=== PATIENT | female | born 1990 | race Caucasian/White ===

== ENCOUNTER 2020-05-26 09:48 | Emergency (ER) | payer OTHER, SELFPAY ==
[2020-05-26 09:54] VITALS: BP 97/55; PULSE 89; RESP 18; TEMP 36.4; O2SAT 100
--- NOTE | 2020-05-26 10:09 | ED.GENADULT ---
HPI - General Adult General Chief complaint: Unspecified Stated complaint: feels like airbubble in chest Time Seen by Provider: 05/26/20 10:12 Source: patient and RN notes reviewed Mode of arrival: ambulatory Limitations: no limitations History of Present Illness HPI narrative: 29-year-old female who is 18 weeks presents with concern for a feeling of a bubble in her throat when she swallows. Reports several day history of this. Reports she feels the need to chew her food very thoroughly and then wash it down with liquid. She denies any heartburn, nausea, vomiting, diarrhea, constipation. She denies shortness of breath, difficulty breathing, coughing, fever, abdominal pain, sore throat, upper respiratory symptoms. Reports she took antacids with no relief. MD complaint: Dysphagia Related Data Home Medications Medication Instructions Recorded Confirmed PNV cmb#95-ferrous fumarate-FA 1 tablet PO DAILY 05/26/20 05/26/20 [] levothyroxine 88 mcg PO DAILY 05/26/20 05/26/20 Allergies Allergy/AdvReac Type Severity Reaction Status Date / Time No Known Allergies Allergy Verified 05/26/20 10:19 Review of Systems Review of Systems: Narrative: CONSTITUTIONAL: Denies malaise, chills, sweats, or fever. EYES: Denies visual changes, redness, or discharge. ENT: Denies rhinorrhea, congestion, sinus pain, otalgia or sore throat. CARDIOVASCULAR: Denies chest pain, palpitations, or edema. RESPIRATORY: Denies cough or dyspnea. GASTROINTESTINAL: Denies abdominal pain, nausea, vomiting, diarrhea. Reports dysphagia MUSCULOSKELETAL: Denies back pain, joint pain, or myalgia. NEUROLOGIC: Denies numbness, weakness, or headache. All systems reviewed & are unremarkable except as noted in HPI and below PMFSH Past Medical History Medical History (Updated 05/26/20 @ 10:29 by Salina Swenson NP) Endometriosis History of hysteroscopy Missed 08/29/11 Transfusion history Blood transfusion Vaginal delivery 09/03/09, , full term, male, 8#7 Surgical History Surgical History Previous section 01/04/13, c/s, full term, female, 7#14 07/31/15, c/s, full term, male, 9# Family History Family History Mother Cerebrovascular accident Father Diabetes mellitus Grandparent Diabetes mellitus Social History Social History Smoking status: Never smoker Alcohol intake: never Substance use: never Comments At time of signature, agree with nursing past medical, surgical, social and family history. There is no relevant family history pertinent to the presenting complaint Exam Narrative: Exam Narrative: GENERAL: Well-appearing, well-nourished, and in no acute distress. HEAD: Normocephalic, atraumatic. EYES: PERRLA, conjunctivae clear ENT: Mucous membranes moist. TM pearly ledesma with sharp light reflex bilaterally; no tragal tenderness. Oropharynx without erythema or lesions. Tonsils not enlarged and without exudate. NECK: Supple. No lymphadenopathy. No jugular venous distension, thyromegaly, or carotid bruits. Carotids were easily palpable bilaterally. CHEST: No respiratory distress. Clear to auscultation. No bony deformities, no asymmetry. Speaks in full sentences. HEART: Regular rate and rhythm. No murmur heard. ABDOMEN: Soft, nontender, nondistended, normal active bowel sounds, no palpable masses. heart tones strong SKIN: Warm, dry, no rash. NEURO: Alert and oriented x3. No focal deficits. PSYCH: Normal mood and affect Course Course Emergency Course: Discussed with patient limited diagnostic capability at the [facility]. Advised patient to call her primary care provider for further evaluation or go to the emergency room if her symptoms become severe. Patient is aware of diagnosis, understands and agrees to t
== END 2020-05-26 10:30 | disposition home or self-care (01) ==
PROVIDERS: Emergency Provider Nurse Practitioner; PCP Obstetrics & Gynecology
DX: R13.10 Dysphagia, unspecified (principal); O90.89 Other complications of the puerperium, not elsewhere classified; Z3A.18 18 weeks gestation of pregnancy
CPT/HCPCS: 99212; G0463

== ENCOUNTER 2020-06-05 09:41 | Outpatient (CLI) | payer OTHER, SELFPAY ==
--- NOTE | ~2020-06-05 | US_ITS ---
US OB /maternal detail DATE: 06/05/2020 11:31 INDICATION: anatomy screen TECHNIQUE: Real-time and Doppler analysis COMPARISON: None FINDINGS: The placenta is anterior, the lower margin 1.7 cm above the internal os. There is a subject ively normal amount of amniotic fluid. The fetus is in vertex presentation, longitudinal lie. heart rate of 141 bpm. The cerebral ventricles appear normal. The cerebellum and cisterna magna and nuchal fold appear within normal limits. spine is not optimally demonstrated due to position. Four-chamber heart. Normal appearing left and right ventricular outflow tracts. The diaph ragm is intact. Fluid is demonstrated in the stomach and urinary bladder. The kidneys aristeo ear normal, without hydronephrosis. Three-vessel umbilical cord with normal appearing insertion at abdominal wall. female external genitalia. Biparietal diameter 4.25 cm; 18 weeks 6 days estimated gestational age Head circumference 16.0 cm; 18 weeks 6 days Abdominal circumference 14.48 cm; 19 weeks 6 days Femur length 3.09 cm; 19 weeks 4 days Composite age by [facility] parameters 19 weeks 2 days +/- 1 week 2 days. RENETTA by ultrasound is 10/28/2020 . Estimated weight is 301 +/- 40 5 g. Head circumference/valve thrombus 1.10, within normal range of 1.09-1.26 Femur length/head circumference 19.33, slightly above normal range of 16.30-80.73. IMPRESSION: Estimated gestational age is 19 weeks 2 days +/- 1 week 2 days; RENETTA is 10/28/2020, compared to 10/26/2020 by LMP anatomy screen is unremarkable except the spine was not optimally demonstrated due to fet al position on the current examination Reviewed, dictated and finalized at [facility]. Reviewed, dictated and finalized at [facility]. WORKER IMPRESSION: Estimated gestational age is 19 weeks 2 days +/- 1 week 2 days; RENETTA is 10/28/2020, compared to 10/26/2020 by LMP anatomy screen is unremarkable except the spine was not optimally d emonstrated due to position on the current examination
[2020-06-05 12:19] LABS: Hematocrit 32.2 % (37.0-47.0); Hemoglobin 11.2 g/dL (12.0-15.0); Mean Corpuscular HGB Conc 34.8 g/dl (32-36); Mean Corpuscular Hemoglobin 31.7 pg (26-34); Mean Corpuscular Volume 91.2 fl (80-100); Mean Platelet Volume 10.1 fl (7.4-10.4); Platelet Count Result 192 k/mm3 (150-375); Red Blood Count 3.53 M/mm3 (4.2-5.4); Red Cell Distribution Width 12.9 % (11.5-14.5); White Blood Count 7.9 K/mm3 (4.5-10.0)
[2020-06-05 12:30] LABS: Glucose 1 Hour PP 50gm Dose 112 mg/dL
== END 2020-06-05 09:42 | disposition home or self-care (01) ==
PROVIDERS: Visit Provider Obstetrics & Gynecology
DX: O26.892 Other specified pregnancy related conditions, second trimester (principal); Z3A.18 18 weeks gestation of pregnancy; Z67.91 Unspecified blood type, Rh negative
CPT/HCPCS: 36415; 76805; 82947; 85027; 85461; 86880; 86902

== ENCOUNTER 2020-07-31 10:21 | Outpatient (CLI) | payer OTHER, SELFPAY ==
--- NOTE | ~2020-07-31 | US_ITS ---
EXAMINATION: US OB follow up DATE: 07/31/2020 11:05 INDICATION: Evaluate placental position TECHNIQUE: Real-time transabdominal obstetric ultrasound. FINDINGS: Comparison ultrasound dated 06/05/2020 There is a single living fetus in vertex presentation. The placenta is anterior without placenta pre via. Placenta is low lying measuring 2.4 cm to the cervix. cardiac activity and movement is noted with a heart rate of 144 beats per minute. T he amniotic fluid volume is subjectively normal. Limited survey demonstrates normal spine.. The following biometric data were obtained: BPD: 65mm corresponds to gestational age 26 weeks 1 days. Head circumference: 256mm corresponds to gestational age 27 weeks 6 days. Abdominal circumference: 236mm corresponds to gestational age 27 weeks 6 days. Femur length: 50mm corresponds to gestational age 27 weeks 0 days. Estimated weight: 1084grams +/- 162grams.] IMPRESSION: 1. Single living intrauterine in vertex presentation with an estimated gestational age of 27 weeks 2 days by inititial ultrasound. Appropriate interval growth. 2. Low-lying anterior placenta measuring 2.4 cm to the cervix. 3: Normal limited survey of the spine. Reviewed, dictated and finalized at location [facility]. ERY ENGINEER IMPRESSION: 1. Single living intrauterine in vertex presentation with an estimat ed gestational age of 27 weeks 2 days by inititial ultrasound. Appropriate int erval growth. 2. Low-lying anterior placenta measuring 2.4 cm to the cervix. 3: Normal limited survey of the spine.
[2020-07-31 11:53] LABS: Hematocrit 31.3 % (37.0-47.0); Hemoglobin 10.9 g/dL (12.0-15.0); Mean Corpuscular HGB Conc 34.8 g/dl (32-36); Mean Corpuscular Hemoglobin 32.1 pg (26-34); Mean Corpuscular Volume 92.1 fl (80-100); Mean Platelet Volume 10.1 fl (7.4-10.4); Platelet Count Result 182 k/mm3 (150-375); Red Cell Distribution Width 12.6 % (11.5-14.5); White Blood Count 8.1 K/mm3 (4.5-10.0)
[2020-07-31 12:41] LABS: Glucose 1 Hour PP 50gm Dose 85 mg/dL
== END 2020-07-31 10:22 | disposition home or self-care (01) ==
PROVIDERS: Visit Provider Obstetrics & Gynecology
DX: O44.42 Low lying placenta NOS or without hemorrhage, second trimester (principal); Z3A.27 27 weeks gestation of pregnancy
CPT/HCPCS: 36415; 76816; 82947; 85027; 86850; 86870; 86880; 86886; 86900; 86901; 86902; 86905; 86971

== ENCOUNTER 2020-08-07 12:55 | Outpatient (CLI) | payer OTHER, SELFPAY ==
--- NOTE | 2020-08-09 07:40 | PC.NURSE ---
08/08/2020 1730- Rhogam dose given in left hip. Lot number [id number], Exp date 10/02/2021.
== END 2020-08-07 12:56 | disposition home or self-care (01) ==
PROVIDERS: Visit Provider Obstetrics & Gynecology
DX: O26.899 Other specified pregnancy related conditions, unspecified trimester (principal); Z67.91 Unspecified blood type, Rh negative; Z3A.00 Weeks of gestation of pregnancy not specified
CPT/HCPCS: 36415; 85461; 86880; 90384; J2790

== ENCOUNTER 2020-10-19 07:03 | Inpatient (IN) | payer OTHER, SELFPAY ==
--- NOTE | 2020-10-02 14:50 | PC.NURSE ---
VERIFIED WITH OR SCHEDULE AND PATIENT--C/S ON 10/23/20 AT 1200 PATIENT INSTRUCTED TO HAVE LABS DRAWN THE FRIDAY BEFORE SURGERY AND SHE WILL TO GET REQUISITION FROM DR BOBO SINCE PRE-ADMIT APPOINTMENT WAS BY PHONE PATIENT INSTRUCTED NOTHING TO EAT OR DRINK AFTER MIDNIGHT THE NIGHT BEFORE SURGERY AND TO BE IN OB THE DAY OF SURGERY AT 10 AM. PATIENT VERBALIZED HER UNDERSTANDING
--- NOTE | 2020-10-18 14:08 | PM.IMHP ---
H&P: HPI History of Present Illness Date/Time: 10/18/20 14:08 at 39+0 with h/o prior c sections coming in for elective repeat C/S. No complaints. No problems this other than + anti-K antibody but titer has remained very low throughout Chief Complaint: Full term , prior c section Review of Systems Review of Systems: All systems reviewed & are unremarkable except as noted in HPI and below PMFSH Past Medical History Medical History Endometriosis History of hysteroscopy Missed 08/29/11 Transfusion history Blood transfusion, received anti-K antibody Vaginal delivery 09/03/09, , full term, male, 8#7 Surgical History Surgical History Previous section 01/04/13, c/s, full term, female, 7#14 07/31/15, c/s, full term, male, 9# Family History Family History Mother Acute myocardial infarction Hearing difficulty of left ear Diabetes mellitus Father No problems noted. Grandparent Diabetes mellitus Social History Social History Smoking status: Never smoker Alcohol intake: never Substance use: never Spiritual care concerns: No Meds Home Medications and Allergies Home Medications Medication Instructions Recorded Confirmed Type PNV cmb#95-ferrous fumarate-FA 1 tablet PO DAILY 05/26/20 05/26/20 History [] levothyroxine 88 mcg PO DAILY 05/26/20 05/26/20 History Allergies Allergy/AdvReac Type Severity Reaction Status Date / Time No Known Allergies Allergy Verified 10/10/20 10:52 Exam Const: General: healthy appearing, no acute distress, alert, awake and Physically active Resp: Auscultation: clear to auscultation bilaterally Cardio: Rate: regular rate Rhythm: regular rhythm GI: Inspection: non-distended GI Palp: Yes Soft to palpation and No Tenderness to palpation present (GI) Extrem: General: no pedal edema and no calf tenderness Psych: Mental Status: mental status grossly normal Assessment and Plan Assessment and plan (1) Previous section: Code(s): Z98.891 - History of uterine scar from previous surgery Status: Acute Assessment and Plan: Proceed with repeat C section due to h/o prior C section, full term . She signed consent after risks, benefits, complications, and alternatives discussed. She expressed understanding and wishes to proceed
[2020-10-19] VITALS (47 sets, daily range): BP systolic 59–120; BP diastolic 49–89; PULSE 54–99; RESP 15–20; TEMP 36.1–36.8; O2SAT 96–100; BMI 27.1
--- OUTSIDE RECORDS SUMMARY | 2020-10-19 07:07 | XMS_ITS ---
:1990 Author Care Team Providers Name Role Phone Martin Dudley Primary Care Provider Unavailable Allergies Code Code System Name Reaction Severity Status Onset NKDA ? Notes: NO KNOWN ALLERGIES (Activ e) Comment: Location: [facility]; Medications Name Status Start Date Stop Date ? ? amoxicillin 875 mg-potassium Completed ? 11/2019 clavulanate 125 mg tablet azithromycin 250 mg tablet Completed ? 11/29 ciprofloxacin 250 mg tablet Completed ? 11/2019 Diflucan 150 mg tablet Active 03/30/2019 Not avail able take 1 tablet by oral route once fluticasone propionate 50 Completed ? 2019 mcg/actuation nasal spray,suspension hydrocodone 5 mg-acetaminophen Completed ? 0 11/30/2019 325 mg tablet levothyroxine Completed ? 11/30/2019 levothyroxine 25 mcg tablet Active ? Not available take 1 tablet by oral route every day levothyroxine 88 mcg tablet Active ? Not available metronidazole 500 mg tablet Completed ? 11/2019 nitrofurantoin Completed ? 11/30/2019 monohydrate/macrocrystals 100 mg capsule phenazopyridine 200 mg tablet Completed ? Active ? Not available ProAir HFA 90 mcg/actuation Completed ? 11/2019 aerosol inhaler sertraline 25 mg tablet Completed ? 11/30/19 20 Xulane 150 mcg-35 mcg/24 hr transdermal patch Active 0
--- NOTE | 2020-10-19 07:17 | LDADM ---
This patient, Edie Cifuentes, was admitted to Labor/Delivery/Recovery 119 on 10/19/20 at 07:03. Plans for labor, pain management and were discussed with patient. Patient/family oriented to hospital policies and general routines including ID bracelet, bed and alarms, visiting hours, pain management, procedures, bathroom and other care routines, personal items, smoking policy, room service/diet and guest tray routines, infant security routines, and visiting hours. Patient/Family are encouraged to report perceived risks to care and to ask questions if they do not understand what they are told or what they should do. See OBIX for further documentation.
[2020-10-19 07:41] LABS: Basophils Percent Auto 0.4 % (0.2-1.2); Eosinophils Absolute Auto 0.5 K/mm3 (0-0.3); Eosinophils Percent Auto 5.9 % (0-4.4); Hematocrit 33.3 % (37.0-47.0); Hemoglobin 11.5 g/dL (12.0-15.0); Immature Granulocyte Absolute 0.03 K/mm3 (0.00-0.031); Immature Granulocyte Percent A 0.3 % (0-0.5); Lymphocytes Absolute Auto 1.87 K/mm3 (0.9-3.2); Lymphocytes Percent Auto 20.3 % (18.3-44.2); Mean Corpuscular HGB Conc 34.5 g/dl (32-36); Mean Corpuscular Hemoglobin 31.4 pg (26-34); Mean Platelet Volume 10.6 fl (7.4-10.4); Monocytes Absolute Auto 0.5 K/mm3 (0.1-0.6); Monocytes Percent Auto 5.5 % (2.6-8.5); Neutrophils Absolute Auto 6.2 K/mm3 (1.3-6.7); Neutrophils Percent Auto 67.6 % (45.5-73.1); Platelet Count Result 212 k/mm3 (150-375); Red Blood Count 3.66 M/mm3 (4.2-5.4); Red Cell Distribution Width 13.1 % (11.5-14.5); White Blood Count 9.2 K/mm3 (4.5-10.0)
[2020-10-19] MEDS: LACTATED RINGERS 1,000 ML 125 ML IV CONT (07:44)
--- NOTE | 2020-10-19 08:31 | WPDANESEPPF ---
Anes - Initial Pre Proc Eval Procedure: Operation Date: 10/19/20 09:00 Proposed Procedures p Repeat Section - Naya Mota MD Date/Time: 10/19/20 08:31 Surgeon: Naya Mota MD Pre Op Diagnosis: Repeat section Patient Data Age: 29 Gender: F Height: 5 ft 1 in Weight: 65 kg Last Vital Signs Pulse 99 10/19/20 07:31 BP 92/54 L 10/19/20 07:31 Allergies Allergy/AdvReac Type Severity Reaction Status Date / Time No Known Allergies Allergy Verified 10/10/20 10:52 Home Medications Medication Instructions Recorded Confirmed Type PNV cmb#95-ferrous fumarate-FA 1 tablet PO DAILY 05/26/20 10/19/20 History [] levothyroxine 88 mcg PO DAILY 05/26/20 10/19/20 History Laboratory Tests 10/19/20 10/19/20 07:13 07:13 WBC 9.2 K/mm3 K/mm3 (4.5-10.0) RBC 3.66 M/mm3 L M/mm3 (4.2-5.4) Hgb 11.5 g/dL L g/dL (12.0-15.0) Hct 33.3 % L % (37.0-47.0) MCV 91.0 fl fl (80-100) MCH 31.4 pg pg (26-34) MCHC 34.5 g/dl g/dl (32-36) RDW 13.1 % % (11.5-14.5) Plt Count 212 k/mm3 k/mm3 (150-375) MPV 10.6 fl H fl (7.4-10.4) Immature Gran % (Auto) 0.3 % % (0-0.5) Neut % (Auto) 67.6 % % (45.5-73.1) Lymph % (Auto) 20.3 % % (18.3-44.2) [place] % (Auto) 5.5 % % (2.6-8.5) Eos % (Auto) 5.9 % H % (0-4.4) Baso % (Auto) 0.4 % % (0.2-1.2) Lymph # (Auto) 1.87 K/mm3 K/mm3 (0.9-3.2) [place] # (Auto) 0.5 K/mm3 K/mm3 (0.1-0.6) Eos # (Auto) 0.5 K/mm3 H K/mm3 (0-0.3) Baso # (Auto) 0.0 K/mm3 K/mm3 (0.0-0.1) Abs Immat Gran (auto) 0.03 K/mm3 K/mm3 (0.00-0.031) Absolute Neuts (auto) 6.2 K/mm3 K/mm3 (1.3-6.7) Absolute Nucleated RBC 0.0 K/mm3 K/mm3 (0.0-0.012) Nucleated RBC % 0.0 % % (0.0-0.2) RPR Pending Patient hx anesthesia problems: none Family hx anesthesia problems: none [facility] Past Medical History Medical History Endometriosis History of hysteroscopy Missed 08/29/11 Transfusion history Blood transfusion, received anti-K antibody Vaginal delivery 09/03/09, , full term, male, 8#7 Surgical History Surgical History Previous section 01/04/13, c/s, full term, female, 7#14 07/31/15, c/s, full term, male, 9# Family History Family History Mother Acute myocardial infarction Hearing difficulty of left ear Diabetes mellitus Father No problems noted. Grandparent Diabetes mellitus Social History Social History Smoking status: Never smoker Alcohol intake: never Substance use: never Spiritual care concerns: No Anes - Eval Final PreProcedure Day of Procedure 10/19/20 08:31 Patient weight: normal Heart: regular rate and rhythm Lungs: clear to auscultation Airway: Mallampati scale class II Neurological: alert and oriented Last oral intake: >/= 8 hours ASA classification: II Emergent: no Anesthetic plan: proceed Anesthesia type and monitoring: regional spinal and standard monitoring Informed Consent: The patient's anesthetic plan and its attendant risks and benefits were discussed with the patient/family/POA. Questions were solicited and answers provided to the satisfaction of the patient/family/POA.
--- NOTE | 2020-10-19 09:00 | WPDHPUPDATE1 ---
History and Physical Update Update Date/Time: 10/19/20 09:00 History and Physical has been reviewed, including an updated exam of the patient. There are NO changes in the patient's condition. Risks, benefits, and alternatives have been discussed and questions answered. Patient agrees to proceed with procedure.
--- NOTE | 2020-10-19 09:04 | PM.PROC ---
Procedure Note - Detailed Date of procedure: 10/19/20 Pre-op diagnosis: Repeat section Post-op diagnosis: same Procedure performed: Repeat LTCS Description of procedure: She was taken to the operating room where spinal anesthesia was obtained and found to be adequate. She was prepared and draped in the normal sterile fashion in the dorsal supine position with a leftward tilt. A Pfannenstiel skin incision was made over her prior incision using the scalpel and extended to the underlying layer of fascia. The fascia was incised in the midline with a scalpel then extended laterally with the Minor scissors. The rectus muscles were dissected off bluntly and sharply and in the midline. The peritoneum was entered sharply and extended inferiorly and superiorly with good visualization of the bladder. The bladder blade was inserted. The vesicouterine peritoneum was tented up and entered sharply with the Metzenbaum scissors. The bladder flap was created sharply. The bladder blade was reinserted. The lower uterine segment was incised in a transverse fashion with the scalpel. The incision was digitally stretched in a cephalocaudal direction. The membranes were ruptured with clear fluid noted. The 's head was delivered atraumatically. The shoulders and body were delivered easily. The cord was clamped x2 and cut. The was passed to the waiting nurse. Cord gas and cord blood was obtained. The placenta was manually extracted. The uterus was exteriorized and cleared of all clots and debris. The uterine incision was closed using 0 Vicryl in a running locked fashion. A couple free [id number] 0 Vicryl sutures were placed for bleeding points along the uterine incision. Once the uterine incision was found to be hemostatic, the uterus was returned to the abdomen. The gutters were cleared of all clots and debris. The uterine incision was reinspected and found to be hemostatic. The rectus muscles were inspected. Any bleeding points were cauterized. The rectus muscles were reapproximated using an 0 Vicryl [id number] suture. The fascia was then closed using 0 Vicryl in a running fashion. The subcutaneous tissue was irrigated. Any bleeding points were cauterized. The skin was closed using in sore but absorbable luis armando. She tolerated the procedure well. Sponge, lap, needle, and instrument counts were correct x2. She was taken to the recovery area in stable condition. Anesthesia: spinal Surgeon: Naya Mota MD Estimated blood loss (mL): 295 Drains: Yes (Lira) Packing: No Pathology: none sent Complications: No immediate complications Condition: stable Disposition: floor Findings: Female , cephalic; weight 7#5oz; Apgars 9/9; normal uterus, tubes, and ovaries
[2020-10-19] MEDS: ceFAZolin 2 GM/D5W 50 ML 2 GM/50 ML BAG IVPB (09:10)
[2020-10-19] MEDS: OXYTOCIN 30 UNITS/NS 500 ML 30 UNITS/500 ML BAG 125 UNITS IV CONT (10:44)
--- NOTE | 2020-10-19 12:22 | OBPPTRN ---
Patient transferred to post room # 291 via bed. Oriented to unit, room, information board, rooming in, admission packet and security measures. Patient verbalizes understanding.
--- NOTE | 2020-10-19 13:30 | PC.NURSE ---
Mother called out for assist with feeding. Consulted with patient, mother reports fed well first feeding. Mother states she breastfed other children for several months each. Reviewed infant feeding cues, frequencies, duration of feedings, feeding elimination flow sheet, and signs of adequate intake. Demonstrated stimulation techniques to wake infant for feeding. Assisted with to breast. Reviewed positioning/alignment in cross cradle, holding breast in U hold and guided asymmetrical latch on. was able to latch within a few attempts. nursed eagerly, with steady draws and frequent swallowing noted. Latch was shallow. Reviewed signs of a correct latch, effective nursing and suck swallow ratio. was able to maintain latch. Mother reported tenderness at times, had slipped to shallow latch. Demonstrated how to adjust latch more deeply while feeding. Mother quickly reports she can feel is latched more deeply and has minimal tenderness. Suggested to stimulate while feeding to keep awake and nursing effectively for increased stimulation and increased intake. Instructed mother to call out for RN assistance if she is unable to latch for feeding or she has discomfort with nursing
[2020-10-19] MEDS: DEXTROSE 5%/0.45% SOD CHL 1,000 ML 125 ML IV CONT (14:49)
[2020-10-19] MEDS: DOCUSATE SODIUM LIQ 100 MG/10 ML UDC PO (21:30)
[2020-10-20 04:30] VITALS: BP 118/71; PULSE 72; RESP 16; TEMP 37.1
[2020-10-20 04:44] LABS: Basophils Percent Auto 0.3 % (0.2-1.2); Eosinophils Absolute Auto 0.2 K/mm3 (0-0.3); Eosinophils Percent Auto 1.8 % (0-4.4); Hematocrit 29.9 % (37.0-47.0); Hemoglobin 10.1 g/dL (12.0-15.0); Immature Granulocyte Absolute 0.07 K/mm3 (0.00-0.031); Immature Granulocyte Percent A 0.6 % (0-0.5); Lymphocytes Absolute Auto 1.14 K/mm3 (0.9-3.2); Lymphocytes Percent Auto 10.1 % (18.3-44.2); Mean Corpuscular HGB Conc 33.8 g/dl (32-36); Mean Corpuscular Hemoglobin 31.4 pg (26-34); Mean Corpuscular Volume 92.9 fl (80-100); Monocytes Absolute Auto 0.7 K/mm3 (0.1-0.6); Monocytes Percent Auto 6.2 % (2.6-8.5); Neutrophils Absolute Auto 9.2 K/mm3 (1.3-6.7); Platelet Count Result 159 k/mm3 (150-375); Red Blood Count 3.22 M/mm3 (4.2-5.4); White Blood Count 11.3 K/mm3 (4.5-10.0)
--- NOTE | 2020-10-20 07:20 | PC.NURSE ---
Mother called out for assist with feeding. Consulted with patient, mother reports has been sleepy and on and off at breast during the night. fed well since . Assisted with to breast. Reviewed positioning/alignment in cross cradle, holding breast in U hold and guided asymmetrical latch on. Infant was able to latch within a few attempts. Infant nursed sleepily and was on and off, waking and making eager attempts to latch not maintaining latch. Used small drops of formula to entice infant to feed. latched nursing with bursts of eager sucking with long pausing. Infant did maintain latch for 10 minutes with constant stimulation needed. Reviewed signs of a correct latch, effective nursing and suck swallow ratio. was able to maintain latch. Suggested to stimulate while feeding to keep infant awake and nursing effectively for increased stimulation and increased intake. Instructed mother to call out for RN assistance if she is unable to latch infant for feeding or she has discomfort with nursing.
--- NOTE | 2020-10-20 07:43 | WPDANLDPN2 ---
Anes-Prog Note L&D Date/Time: 10/20/20 07:43 Comfortable throughout: section Neuraxial method: spinal Epidural/Spinal procedure site: clean & non-tender Neuro status: Neuro function grossly intact. Cardiovascular status: normal Respiratory status: normal Airway patency: baseline Mental status: baseline Post-Op hydration status: normal Vital Signs: Last Vital Signs Temp 37.1 C 10/20/20 04:30 Pulse 72 10/20/20 04:30 Resp 16 10/20/20 04:30 BP 118/71 10/20/20 04:30 Pulse Ox 100 10/19/20 12:30 Pain score (VAS): 0 I/O: Intake & Output 10/19/20 10/19/20 10/20/20 15:59 23:59 07:59 Intake Total 8307 654 6226 Output Total 832 1300 3650 Balance [phone] Post-procedural complaints: none Patient feedback: Patient satisfied with anesthetic care.
--- NOTE | 2020-10-20 07:43 | WPDANLDNPN2 ---
Anes-Prog Note L&D-Neuraxial Date/Time: 10/20/20 07:43 Neuraxial medications: intrathecal PF morphine Opiod-related complaints: none Patient feedback: Patient satisfied with post-operative pain management.
--- NOTE | 2020-10-20 08:04 | P.PNOB_ITS ---
OB - PN: Subj Subjective Date/time seen: 10/20/20 08:04 Patient comments: no complaints, pain well controlled, incisional pain, tolerating diet, flatus present and other (Lochia similar to menses) baby status: doing well OB - PN: Obj Data Labs CBC & Chem 7: 10/20/20 04:29 Labs: Laboratory Results - last 24 hr 10/19/20 10/20/20 07:13 04:29 WBC 11.3 H RBC 3.22 L Hgb 10.1 L Hct 29.9 L MCV 92.9 MCH 31.4 MCHC 33.8 RDW 13.0 Plt Count 159 MPV 11.0 H Immature Gran % (Auto) 0.6 H Neut % (Auto) 81.0 H Lymph % (Auto) 10.1 L [place] % (Auto) 6.2 Eos % (Auto) 1.8 Baso % (Auto) 0.3 Lymph # (Auto) 1.14 [place] # (Auto) 0.7 H Eos # (Auto) 0.2 Baso # (Auto) 0.0 Abs Immat Gran (auto) 0.07 H Absolute Neuts (auto) 9.2 H Absolute Nucleated RBC 0.0 Nucleated RBC % 0.0 Blood Type A Negative Antibody Screen Positive Antibody Identification Anti-[place] Antigen Identification Cancelled JANIYA, IgG Interpret Negative JANIYA, Poly Interpret Negative JANIYA, Complement Interp Not Performed Enhanced Crossmatch See Detail OB - PN A/P Plan day: 1 (s/p C section, doing well) Plan: routine care Time Spent With Patient Time: Total time spent is greater than 50% in coordination of care (as documented) at patient's floor/unit and/or counseling patient: Exam Const: General: no acute distress Resp: Auscultation: clear to auscultation bilaterally Cardio: Rate: regular rate Rhythm: regular rhythm GI: Inspection: non-distended, incision (Intact without erythema, drainage, or induration) and other (Fundus firm and nontender at umbilicus) GI Palp: Yes abdominal tenderness (appropriate ) and Yes Soft to palpation Extrem: General: no edema
[2020-10-20 08:45] VITALS: BP 109/66; PULSE 109; RESP 16; TEMP 37; O2SAT 96
[2020-10-20] MEDS: DOCUSATE SODIUM LIQ 100 MG/10 ML UDC PO ×2 (08:54→21:04)
[2020-10-20] MEDS: IBUPROFEN SUSPENSION 200 MG/10 ML UDC 600 MG PO ×2 (08:54→21:02)
[2020-10-20] MEDS: LEVOTHYROXINE SODIUM 88 MCG TABLET PO (08:57)
[2020-10-20] MEDS: MULTIVITS W-FE,MIN CHEWABLE TABLET 1 TABLET PO (08:57)
--- NOTE | 2020-10-20 11:45 | PC.NURSE ---
Mother called out for assist with waking for feeding. Demonstrated stimulation techniques to wake, unwrapped gentle stimulation to back and sternum. Infant awake easily falling back to sleep. Infant attempted 10 minutes, with weak attempt to latch. would latch with short bursts of suckling and release latch. Mother wishes to pump.
[2020-10-20 12:01] LABS: Rapid Plasma Reagin Non-Reactive (NonReactive)
--- NOTE | 2020-10-20 12:05 | PC.NURSE ---
Breast pump provided due to ineffective feeding. Instructions given on breast pump care and usage, pumping schedule, nipple care, and collection and storage of breast milk. Encouraged [id number], breast massage and manual expression to stimulate supply. Assessed patient for correct flange size, placement and draw. Patient verbalizes and demonstrates understanding of instructions.
--- NOTE | 2020-10-20 16:10 | PC.NURSE ---
Upon entering room mother has latched deeply to breast in cradle positioning. Infant is nursing eagerly with rhythmic draws and occasional swallowing is noted. <other states she is tender to the nipple. Reviewed nipple care of lanolin, warm compresses several times per day. Reviewed feeding cues, frequencies, duration of feedings, feeding elimination flow sheet, and signs of adequate intake. Demonstrated stimulation techniques to wake for feeding. Assisted with infant to breast. Reviewed positioning/alignment in cradle, holding breast in C hold and guided asymmetrical latch on. Reviewed signs of a correct latch, effective nursing and suck swallow ratio. was able to maintain latch. Mother reported tenderness at times, had slipped to shallow latch. Demonstrated how to adjust latch more deeply while feeding. Mother quickly reports she can feel is latched more deeply and has minimal tenderness. Suggested to stimulate while feeding to keep infant awake and nursing effectively for increased stimulation and increased intake. Instructed mother to call out for RN assistance if she is unable to latch for feeding or she has discomfort with nursing.
[2020-10-20 23:28] VITALS: BP 120/76; PULSE 81; RESP 17; TEMP 36.9
[2020-10-21] MEDS: MULTIVITS W-FE,MIN CHEWABLE TABLET 1 TABLET PO (06:59)
[2020-10-21] MEDS: LEVOTHYROXINE SODIUM 88 MCG TABLET PO (06:59)
[2020-10-21 07:00] VITALS: BP 104/74; PULSE 81; RESP 16; TEMP 36.9
[2020-10-21] MEDS: IBUPROFEN SUSPENSION 200 MG/10 ML UDC 600 MG PO (07:00)
[2020-10-21] MEDS: DOCUSATE SODIUM LIQ 100 MG/10 ML UDC PO (07:01)
--- NOTE | 2020-10-21 10:53 | PM.OBPNVD ---
OB - PN: Subj Subjective Date/time seen: 10/21/20 10:53 Patient comments: no complaints, pain well controlled, tolerating diet, flatus present and other (Ambulating and voiding without problems. Lochia similar to menses) baby status: doing well OB - PN: Obj Data Labs CBC & Chem 7: 10/20/20 04:29 Labs: Laboratory Results - last 24 hr 10/19/20 07:13 RPR Non-reactive OB - PN A/P Plan day: 2 (s/p C section, doing well) Plan: routine care and discharge home (Follow up in 1-2 weeks) Time Spent With Patient Time: Total time spent is greater than 50% in coordination of care (as documented) at patient's floor/unit and/or counseling patient: Time with patient: less than 15 minutes Exam Const: General: no acute distress Resp: Auscultation: clear to auscultation bilaterally Cardio: Rate: regular rate Rhythm: regular rhythm GI: Inspection: non-distended, incision (Intact without erythema, drainage, or induration) and other (Fundus firm and nontender below umbilicus) GI Palp: Yes abdominal tenderness (appropriate) and Yes Soft to palpation Extrem: General: no edema
--- NOTE | 2020-10-21 10:54 | PM.OBDSVD ---
DS: Admitting Diagnosis Admitting Diagnosis Admitting Diagnosis: Prior c section OB - DS: Summary OB Procedures : None OB Procedures Intrapartum: OB Procedures: : RHo (D) lg Peripartum Data Delivery Method: Section Procedures: Procedures Operation Date: 10/19/20 09:00 Actual Procedures Side Surgeon p Repeat Section Naya Mota MD complications: none Status at Discharge Functional status at discharge: independent ambulation Overall status at discharge: patient is progressing back to baseline Time Spent with Patient Time attestation: Total time spent providing and/or coordinating discharge services: Time spent: Less than 30 minutes DS: Data Data Completed and Pending Labs on day of discharge: Labs from last 24 hours 10/19/20 07:13 RPR Non-reactive Discharge Plan Discharge Attending physician on discharge: Naya Mota Discharging Clinician: Naya Mota Patient Disposition: Home, Self-Care Activity: may shower and pelvic rest Diet: as tolerated Wound Care Instructions: incision open to air Patient Instructions: Antibiotic Form Stand Alone Forms: General Discharge Information Follow-up/Referrals: Naya Mota MD [Physician] - 1 Week Discharge Medications: New hydrocodone-acetaminophen 7.5-325 mg/15 mL Solution 10 ml PO Q4H PRN (Reason: Pain Rated 6 Or Greater) Qty: 200 RF: 0 ibuprofen 100 mg/5 mL Suspension 600 mg PO Q6H PRN (Reason: Cramping) Qty: 473 RF: 0 Continued levothyroxine 88 mcg Tablet 88 mcg PO DAILY RF: 0 PNV cmb#[id number] fumarate-FA [] 28 mg iron- 800 mcg Tablet 1 tablet PO DAILY RF: 0 Date of admission: 10/19/20 07:03 Primary Care Provider: UNKNOWN,DOCTOR Admitting Provider: Naya Mota Attending physician on admission: Naya Mota Condition: Stable
[2020-10-21] MEDS: TETANUS,DIPHTHERIA,AC PERTUSSIS ADULT (0.5 ML) BOOSTRIX IM (12:02)
== END 2020-10-21 12:30 | disposition home or self-care (01) | DRG 540 ==
LOC: ANHLDR 07:47 → ANHOB2 12:26
PROVIDERS: Admitting Provider Obstetrics & Gynecology; Visit Provider Obstetrics & Gynecology
PROC: 10D00Z1 Extraction of Products of Conception, Low, Open Approach (ICD-10-PCS; CPT 59514; principal; 2020-10-19 09:00)
DX: O34.211 Maternal care for low transverse scar from previous cesarean delivery (principal); Z37.0 Single live birth; Z3A.39 39 weeks gestation of pregnancy; O99.893 Other specified diseases and conditions complicating puerperium; N80.9 Endometriosis, unspecified
CPT/HCPCS: 36415; 85025; 86592; 86850; 86870; 86880; 86900; 86901; 86902; 86922; 90715; A9270; J0131; J0690; J1200; J2274; J2405; J2590; J2704; J7120

== ENCOUNTER 2023-07-09 08:55 | Outpatient (CLI) | payer OTHER, MEDICAID, SELFPAY | END 2023-07-09 08:56 | disposition home or self-care (01) | PROVIDERS: PCP Student in an Organized Health Care Education/Training Program; Visit Provider Obstetrics & Gynecology | DX: O00.90 Unspecified ectopic pregnancy without intrauterine pregnancy (principal) | CPT/HCPCS: 36415; 84702 ==

== ENCOUNTER 2023-07-11 02:59 | Day surgery (SDC) | payer OTHER, MEDICAID, SELFPAY ==
[2023-07-09 13:47] VITALS: BMI 22.1
--- NOTE | 2023-07-09 13:53 | PC.NURSE ---
Report to the Outpatient Waiting Room, entrance under the green pavilion located off [facility], at time 0830 on date 07/11/23. Planned Procedure Time: 1030. Time changes happen often and if your time is changed the preop area will call you the afternoon before. - You and your visitor will be asked to self-screen and do not enter if you have any COVID symptoms. - A mask is optional within the hospital at this time. Patients may have clear liquids (water, carbonated beverages, clear teas, apple juice) until 3 hours prior to surgery with a maximum of 20 ounces. - No food from midnight until time of surgery Take the following medications with a SIP of water the morning of surgery: TRAMADOL DO NOT STOP ANY OF YOUR OTHER PRESCRIPTION MEDICATIONS PRIOR TO SURGERY ?EXCEPT THE FOLLOWING Medications to discontinue per physician: N/A Date to take last dose: N/A Please no make-up, nail danish, hairspray, perfume, deodorant, or body powder the day of surgery. No jewelry (including any body piercings) or valuables the day of surgery, leave them at home. Please take a shower or bath the night before, or the morning of, surgery with an antibacterial soap. Wear comfortable, loose fitting clothing. - Jewelry must be removed prior to entering the operating room. Rings and piercings that are not removed may be cut off. - The hospital will not accept responsibility for valuables. - Please leave all valuables, including medications, at home the day of surgery. If you are going home after surgery, a licensed truck driver flatbed must drive you home. - NO public transportation without another adult if you receive anesthesia. - We recommend that an adult stay with you for 24 hours following discharge. - We also recommend that you do not drive, make important decision, drink alcoholic beverages, or take any drugs that were not prescribed by your health care provider for at least 24 hours after your discharge time. Follow any additional instructions given to you from your surgeon. If you or anyone in your household have experienced Covid symptoms in the past week, please notify your surgeon or the nurse liaison at the phone number below for possible testing. Telephone instructions given to PT - CARLA YOUNG and asked if any additional questions and then verbalized understanding. Patient advised to call surgeon office or pre surgery nurse liaison [phone] if any additional questions.
[2023-07-11] VITALS (10 sets, daily range): BP systolic 90–111; BP diastolic 54–75; PULSE 64–103; RESP 12–16; TEMP 36.4–36.8; O2SAT 99–100
--- NOTE | 2023-07-11 08:17 | PM.IMHP ---
H&P: HPI History of Present Illness Date/Time: 07/11/23 08:17 Chief Complaint: Ectopic Narrative: She is admitted for planned diagnostic laparoscopy and removal of ectopic tissue. She was diagnosed and treated for ectopic with Methotrexate x 2 at outside facility. Subsequently she had increasing pain and presented to the facility again and 5x6 cm mass noted in left adnexal where the ectopic was located. Pain improved with meds and she was discharged. She presented to office for follow up and the hcg levels have decreased slowly from her second methotrexate treatment. She is feeling occasional pain in the area of the ectopic. I recommend laparoscopic removal of the ectopic tissue due to the mass and pain. She was informed if continued to monitor the hcg levels as they decrease there is still a risk of rupture of the ectopic. She agreed to laparoscopic removal of adnexal tissue via salpingotomy or she may need the affected tube removed, this will be determined at time of procedure. She was informed of risk benefit of salpingotomy and risk of salpingectomy and her future risk of ectopic . She agreed to laparoscopic removal of ectopic tissue. Review of Systems Review of Systems: All systems reviewed & are unremarkable except as noted in HPI and below Cardiovascular: Cardiovascular: Reports no additional cardiovascular complaints, Denies chest pain and Denies dyspnea Respiratory: Respiratory: Reports no additional respiratory complaints and Denies dyspnea Gastrointestinal: Gastrointestinal: Reports abdominal pain, Denies change in bowel habits, Denies diarrhea, Denies nausea and Denies vomiting Genitourinary: Genitourinary: Reports pelvic pain Musculoskeletal: Musculoskeletal: Reports back pain Integumentary/Breasts: Skin/Breast: Reports system reviewed and no additional complaints, except as docu Neurologic: Reports system reviewed and no additional complaints, except as documented PMFSH Past Medical History Medical History Ectopic Endometriosis Missed 08/29/11 Transfusion history Blood transfusion, received anti-K antibody Vaginal delivery x1 Surgical History Surgical History History of hysteroscopy Previous section x3 Family History Family History Mother Acute myocardial infarction Hearing difficulty of left ear Diabetes mellitus Father No problems noted. Grandparent Diabetes mellitus Social History Social History Smoking status: Never smoker Alcohol intake: never Substance use: never Substance use type: does not use Lack of Transportation: No Lack of Food: Never True Current Housing: I Have Housing Concerned About Future Housing: No Difficulty Paying Gas/Electric Bills: No Difficulty Paying for Meds: No Currently Unemployed: No Living arrangements: with friend(s) Additional living arrangements comments: BOYFRIEND Gender identity (if verbalized by the patient): Female Sexual Orientation (if Verbalized by the Patient): Straight or Heterosexual Spiritual care concerns: No Meds Home Medications and Allergies Home Medications Medication Instructions Recorded Confirmed Type tramadol 50 mg tablet 50 mg PO Q6H PRN pain #14 tabs 06/25/23 07/09/23 Rx Allergies Allergy/AdvReac Type Severity Reaction Status Date / Time latex Allergy Severe Rash Verified 07/11/23 08:26 Exam Const: Orientation/consciousness: oriented to person and oriented to place HENMT: Head: normal to inspection Eyes: General: appearance normal, both eyes and all related structures Resp: Effort & Inspection: normal respiratory effort Auscultation: clear to auscultation bilaterally Cardio: Rate: regular rat
--- NOTE | 2023-07-11 08:41 | WPDANESEPPF ---
Anes - Initial Pre Proc Eval Procedure: Operation Date: 07/11/23 10:30 Proposed Procedures p Diagnostic Laparoscopy - Romaine Hebert MD Date/Time: 07/11/23 08:41 Surgeon: Romaine Hebert MD Pre Op Diagnosis: Ectopic , Adnexal Mass Patient Data Age: 32 Gender: F Height: 1.55 m Weight: 51.5 kg Last Vital Signs Temp 36.4 C L 07/11/23 08:40 Pulse 96 07/11/23 08:40 Resp 16 07/11/23 08:40 BP 111/63 07/11/23 08:40 Pulse Ox 100 07/11/23 08:40 O2 Del Method Room Air 07/11/23 08:40 Allergies Allergy/AdvReac Type Severity Reaction Status Date / Time latex Allergy Severe Rash Verified 07/11/23 08:26 Home Medications Medication Instructions Recorded Confirmed Type tramadol 50 mg tablet 50 mg PO Q6H PRN pain #14 tabs 06/25/23 07/09/23 Rx Patient hx anesthesia problems: none Family hx anesthesia problems: none Results Review: All pre-operative results and documents have been reviewed as part of the pre-operative evaluation. [facility] Past Medical History Medical History Ectopic Endometriosis Missed 08/29/11 Transfusion history Blood transfusion, received anti-K antibody Vaginal delivery x1 Surgical History Surgical History History of hysteroscopy Previous section x3 Family History Family History Mother Acute myocardial infarction Hearing difficulty of left ear Diabetes mellitus Father No problems noted. Grandparent Diabetes mellitus Social History Social History Smoking status: Never smoker Alcohol intake: never Substance use: never Substance use type: does not use Lack of Transportation: No Lack of Food: Never True Current Housing: I Have Housing Concerned About Future Housing: No Difficulty Paying Gas/Electric Bills: No Difficulty Paying for Meds: No Currently Unemployed: No Living arrangements: with friend(s) Additional living arrangements comments: BOYFRIEND Gender identity (if verbalized by the patient): Female Sexual Orientation (if Verbalized by the Patient): Straight or Heterosexual Spiritual care concerns: No Anes - Eval Final PreProcedure Day of Procedure 07/11/23 08:41 Patient weight: normal Heart: regular rate and rhythm Lungs: clear to auscultation Airway: Mallampati scale class II Neurological: alert and oriented Last oral intake: >/= 8 hours ASA classification: II Emergent: no Anesthetic plan: proceed Anesthesia type and monitoring: general ETT and standard monitoring Results Review: All pre-operative results and documents have been reviewed as part of the pre-operative evaluation. Informed Consent: The patient's anesthetic plan and its attendant risks and benefits were discussed with the patient/family/POA. Questions were solicited and answers provided to the satisfaction of the patient/family/POA.
[2023-07-11] MEDS: ACETAMINOPHEN 500 MG TABLET 1000 MG PO (08:44)
[2023-07-11] MEDS: SCOPOLAMINE 1.5 MG PATCH TRANSDERM (08:45)
[2023-07-11] MEDS: KETOROLAC 15 MG/ML VIAL (*BKC) IV PUSH (08:58)
[2023-07-11] MEDS: LACTATED RINGERS 1,000 ML 30 ML IV CONT ×2 (08:58→11:06)
--- NOTE | 2023-07-11 09:28 | WPDHPUPDATE1 ---
History and Physical Update Update Date/Time: 07/11/23 09:28 History and Physical has been reviewed, including an updated exam of the patient. There are NO changes in the patient's condition. Risks, benefits, and alternatives have been discussed and questions answered. Patient agrees to proceed with procedure.
[2023-07-11] MEDS: BUPivacaine HCL 0.5% 10 ML AMP 30 ML INFILTRATE (10:05)
--- NOTE | 2023-07-11 11:09 | W.PM.PROC2 ---
Procedure Note - Detailed Date of Procedure 07/11/23 Pre-op Diagnosis Ectopic , Adnexal Mass Post-op Diagnosis Other (1. left unruptured adnexal mass consistent with ectopic 2. severe pelvic adhesive disease 3. severe endometriosis.) Procedure Performed Diagnostic laparoscopy. Salpingostomy. Lysis of adhesions Surgeon Romaine Hebert MD [facility] OR prpvided Anesthesia General Indications Patient with ectopic treated with methotrexate with new adnexal mass after treatment, slowly declining hcg levels. She has rhogam at outside facility at her second visit to ED. Findings Adhesions small amount of the omentum to the left lower abdomen which were lysed for visualization. Uterus severely adhesed to colon posteriorly and bladder anteriorly. The right and left adnexa were adhesed to sidewall and colon was able to identify the fimbria of the right fallopian tube. The left proximal fallopian tube appeared to have a dilation of proximal tube approximately 5 cm consistent with the prior ultrasound finding. Unable to identify any fimbria tissue on the left, distally the left fallopian tube was adhesed with the colon and the left pelvic sidewall. There appeared to be endometriosis lesions at the superior uterus posteriorly which were cauterized. Ovaries were difficult to visualize. When the dilated portion of the tube was open there appeared to be small amount of ectopic tissue and mostly dark blood. Description of Procedure After informed consent was obtained patient was taken to the operating room and general endotracheal anesthesia was administered. She was placed in low lithotomy position and prepped and draped in sterile fashion. Attention was turned to the vagina speculum was inserted single-tooth tenaculum placed on anterior lip of the cervix an acorn uterine manipulator was inserted into the cervical canal. A straight Lira catheter was inserted and approximately 75 cc of yellow urine was obtained. Catheter was removed. Attention was turned to the abdomen with sterile gloves at the umbilicus 5 cc of 0.5% Marcaine was injected subcutaneously a horizontal skin incision was made with the scalpel. The subcutaneous tissue was dissected down with the Kelley and the S retractor the fascia was grabbed with a Kelley clamp and incised this was done at the anterior and posterior fascia the peritoneal was entered. The fascial edges were secured with 0 Vicryl on a UR 6. The Hysson port was inserted. The fascial tags were secured to the port. A pneumoperitoneum of 15 mm per mercury was obtained. Patient was placed in Trendelenburg position. Attention was turned to the left side of the abdomen and 0.5% Marcaine was injected and a 5 mm port was inserted under laparoscopic visualization. Attention was turned to the right side of the abdomen and a 10 mm port was inserted after an incision and Marcaine was injected. There was noted to be some dark blood in the pelvis. The cul-de-sac was obliterated the intestines were severely attached to the lower to mid uterus. The LigaSure was used to remove some adhesions from the omentum to the left lower abdominal wall to help with visualization. The small amount of old blood in the pelvis was suctioned. The left round ligament was identified and the swelling was behind this which was consistent with a fallopian tube although normal fallopian tube tissue could not be identified. The LigaSure was used to make an incision over the dilated area which appeared to be the proximal fallopian tube and there was dark blood that was released and suction. The [place] grasper was then used to grabs tissue from the area until there was no tissue obtained. And bleeding was minimal there was minimal tissue that was obtained. Though the small amount looked to be consistent with ectopic tissue. The area was irrigated the area was cauterized hemostasis was noted. The mass did resolve it seemed that it was mostly blood. After hemos
--- NOTE | 2023-07-11 11:29 | SUR.PHASEI ---
[address] CEBALLOS WHO STATES PATIENT DOES NOT NEED TO RECEIVE ADDITIONAL RHOGAM AT THIS TIME.
--- NOTE | 2023-07-11 11:59 | SUR.PHASEI ---
1155 - pt states that she has pain medication at home
== END 2023-07-11 13:33 | disposition home or self-care (01) ==
PROVIDERS: PCP Hospitalist; Visit Provider Obstetrics & Gynecology
PROC: (CPT 49320; principal; 2023-07-11 10:30)
DX: O00.102 Left tubal pregnancy without intrauterine pregnancy (principal); N80.00 Endometriosis of the uterus, unspecified
CPT/HCPCS: 58662; 59150; 88305; A9270; J0330; J0690; J1100; J1885; J2250; J2405; J2704; J3010; J7030; J7120

== ENCOUNTER 2023-07-15 15:19 | Outpatient (CLI) | payer OTHER, MEDICAID, SELFPAY ==
[2023-07-15 16:54] LABS: Beta HCG Quantitative 343.44 mIU/ML
== END 2023-07-15 15:20 | disposition home or self-care (01) ==
PROVIDERS: PCP Hospitalist; Visit Provider Obstetrics & Gynecology
DX: O00.90 Unspecified ectopic pregnancy without intrauterine pregnancy (principal); Z3A.00 Weeks of gestation of pregnancy not specified
CPT/HCPCS: 36415; 84702